=== PATIENT | female | born 1930 | race Caucasian/White ===

== ENCOUNTER 2017-01-08 09:27 | Day surgery (SDC) | payer MEDICARE, OTHER ==
[~2017-01-08] VITALS: Ht 152.4 cm; Wt 67.0 kg
[~2017-01-08 09:27] MED LIST: ACETAMINOPHEN 500 MG TAB (TYLENOL) PO PRN; ALBU0.63 IH; CHONDROITIN/HYALURONATE (DISCOVISC) 1 ML SYR IO ONE; FEXO30OR6 PO; GBPN300C PO; GUAI-150 PO; HYDR-3811 PO; LEVO25TA5 PO; MELA1TAB26 PO; MULT-301 PO; NITR1PAT56 TD; PHENYLEPHRINE/KETOROLAC 4 ML VIAL IO ONE; SODIUM CHLORIDE FLUSH 3 ML SYR IV PRN; TETRACAINE 0.5% OPHTHALMIC SOLUTION 4 ML BTL ONE; diphenhydrAMINE 50 MG/ML INJ (BENADRYL) IV PRN
--- OUTSIDE RECORDS SUMMARY | 2017-01-08 09:31 | XMS REPORT | Continuity Of Care Document ---
Author Author [facility] Organization 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 Role Phone UNASSIGNED, PHYSICIAN Unavailable Unavailable TERE LO, G AT YAPCEDRICK DO, A PP Results Lab Results Visit/Account #[id number] (November 06, 2016 9:50am - November 06, 2016 12: 40pm) Test Result Date/Time POC LACTIC ACID VENOUS POC LACTIC ACID VENOUS(0.90-1.70 MMOL/L) 0.63 MMOL/L November 06, 2016 9:57am CBC WITH REFLEXED MANUAL DIFF WHITE BLOOD COUNT(4.0-11.0 10E3/UL) 9.7 10E3/UL November 06, 2016 9:53am RED BLOOD COUNT(4.00-5.20 10E6/UL) 3.90 10E6/UL November 06, 2016 9:53am HEMOGLOBIN(12.0-16.0 G/DL) 11.9 G/DL November 06, 2016 9:53am HEMATOCRIT(36.0-46.0 %) 37.0 % November 06, 2016 9:53am MEAN CORPUSCULAR VOLUME(82.0-100.0 FL) 94.9 FL November 06, 2016 9:53am 91625-2: MEAN CORPUSCULAR HEMOGLOBIN(26.0-34.0 PG) 30.5 PG November 06, 2016 9:53am MEAN CORPUSCULAR HGB CONC(31.5-36.5 G/DL) 32.2 G/DL November 06, 2016 9:53am RED CELL DISTRIBUTION WIDTH(11.5-14.5 %) 13.6 % November 06, 2016 9:53am 777-3: PLATELET COUNT(150-450 10E3/UL) 180 10E3/UL November 06, 2016 9:53am MEAN PLATELET VOLUME(8.2-12.4 FL) 8.3 FL November 06, 2016 9:53am DIFF TYPE MANUAL November 06, 2016 9:53am NEUTROPHIL % (MANUAL)(40-70 %) 89 % November 06, 2016 9:53am BANDS%(0-3 %) 2 % November 06, 2016 9:53am LYMPHOCYTES % (MANUAL)(15-45 %) 3 % November 06, 2016 9:53am MONOCYTES % (MANUAL)(2-10 %) 4 % November 06, 2016 9:53am EOSINOPHILS % (MANUAL)(0-6 %) 1 % November 06, 2016 9:53am 08025-3: BASOPHILS % (MANUAL)(0-1 %) 1 % November 06, 2016 9:53am NUCLEATED RBCS (MANUAL)(0-0 %) 0 % November 06, 2016 9:53am 753-4: NEUTROPHILS # (MANUAL)(2.5-7.5 10E3/UL) 8.8 10E3/UL November 06, 2016 9:53am 732-8: LYMPHOCYTES # (MANUAL)(1.0-4.0 10E3/UL) 0.3 10E3/UL November 06, 2016 9:53am 743-5: MONOCYTES # (MANUAL)(0.2-0.8 10E3/UL) 0.4 10E3/UL November 06, 2016 9:53am 712-0: EOSINOPHILS # (MANUAL)(0.0-0.4 10E3/UL) 0.1 10E3/UL November 06, 2016 9:53am 705-4: BASOPHILS # (MANUAL)(0.0-0.2 10E3/UL) 0.1 10E3/UL November 06, 2016 9:53am 9317-9: PLATELET ESTIMATE ADEQUATE November 06, 2016 9:53am 42231-5: WBC MORPHOLOGY COMMENT NORMAL November 06, 2016 9:53am 6742-1: RBC MORPHOLOGY COMMENT NORMAL November 06, 2016 9:53am 38101-3: PLATELET MORPHOLOGY COMMENT NORMAL November 06, 2016 9:53am 47189-2: COMPLETE METABOLIC PROFILE GLUCOSE(70-110 MG/DL) 108 MG/DL November 06, 2016 9:53am BLOOD UREA NITROGEN(6-20 MG/DL) 14 MG/DL November 06, 2016 9:53am CREATININE(0.50-1.20 MG/DL) 0.61 MG/DL November 06, 2016 9:53am 41949-7: EST GLOMERULAR FILTRATION RATE(Greater than or equal to 60) Greater than or equal to 60 Result Comments: If the patient is of -[place] descent/extraction multiply the eGFR value by 1.212 to obtain the actual eGFR. >=60 mg/dL Normal 30-59 mg/dL Moderate Kidney Disease 15-29 mg/dL Severe Kidney Disease <15 mg/dL Kidney Failure November 06, 2016 9:53am BUN CREATININE RATIO(10.0-20.0 RATIO) 23.0 RATIO November 06, 2016 9:53am SODIUM(135-145 MMOL/L) 133 MMOL/L November 06, 2016 9:53am POTASSIUM(3.6-5.0 MMOL/L) 3.9 MMOL/L November 06, 2016 9:53am CHLORIDE(101-111 MMOL/L) 100 MMOL/L November 06, 2016 9:53am CO2(21-31 MMOL/L) 26 MMOL/L November 06, 2016 9:53am ANION GAP(8-18) 11 November 06, 2016 9:53am OSMO CALCULATED(270.0-290.0) 267.4 November 06, 2016 9:53am CALCIUM(8.5-10.5 MG/DL) 9.9 MG/DL November 06, 2016 9:53am BILIRUBIN,TOTAL(0.1-1.2 MG/DL) 0.6 MG/DL November 06, 2016 9:53am ALKALINE PHOSPHATASE(42-121 IU/L) 58 IU/L November 06, 2016 9:53am ASPARTATE AMINO TRANSFERASE(10-42 IU/L) 29 IU/L November 06, 2016 9:53am ALANINE AMINOTRANSFERASE(10-60 IU/L) 16 IU/L November 06, 2016 9:53am TOTAL PROTEIN(6.4-8.2 G/DL) 7.3 G/DL November 06, 2016 9:53am ALBUMIN(3.5-5.5 G/DL) 4.1 G/DL November 06, 2016 9:53am GLOBULIN(2.4-3.6) 3.2 November 06, 2016 9:53am ALBUMIN/GLOBULIN RATIO(0.9-1.8 RATIO) 1.3 RATIO November 06, 2016 9:53am Microbiology Results Visit/Account #[id number] (November 06, 2016 9:50am - November 06, 2016 12: 40pm) Procedure Result BLOOD CULTURE BLOOD CULTURE Result Instance On November 06, 2016 11:35am Source: BLOOD Result Comments: GRAM POSITIVE COCCI OBSERVED ON THE GRAM STAIN OF THE AEROBIC BOTTLE. RESULTS CALLED TO AND READ BACK BY KARON ON 11/07/16 AT 0126 BY [employer]. BARCODE #: [id number] Organism: [id number] (SNOMED_CT) STREPTOCOCCUS PYOGENES GRP A BLOOD CULTURE BOTTLE ISOLATED FROM AEROBIC BOTTLE ADDITIONAL INFORMATION SENSITIVITY ON [id number] Result Instance On November 06, 2016 11:35am Source: BLOOD Result Comments: GRAM POSITIVE COCCI OBSERVED ON THE GRAM STAINS OF BOTH THE AEROBIC AND ANAEROBIC BLOOD CULTURE BOTTLES. RESULTS CALLED TO AND READ BACK BY KARON ON 11/07/16 AT 0035 BY [employer]. BARCODE #: [id number] STREPTOCOCCUS PYOGENES detected by Verigene Nucleic Acid Test. [facility]igene results do not rule out the possiblility of infection with other organisms. Detection of antimicrobial resistance markers does not indicate resistance, as resistance may occur by other mechanisms. Results of nucleic acid testing are preliminary and will be verified by culture and suceptiblilty testing. The Verigene BC-GP assay tests for S. aureus, S. lugdunensis, S. agalactiae, S. pneumoniae, E. faecalis, S. pyogenes, S. anginosus group, E. facium, Staphylococcus, and Streptococcus. Resistance markers tested include: mecA, Natalia and vanB. Organism: [id number] (SNOMED_CT) STREPTOCOCCUS PYOGENES GRP A BLOOD CULTURE BOTTLE ISOLATED FROM BOTH BOTTLES Allergies and Adverse Reactions Allergies and Adverse Reactions Patient Unit Number: [id number] Agent Type Reaction Severity Status PENICILLINS Drug Allergy RASH Mild Active SHELLFISH Drug Allergy WARM ALL OVER AND LIGHTHEADED Mild Active CODEINE Drug Adverse Reaction GI UPSET Mild Active ERYTHROMYCIN BASE Drug Adverse Reaction NAUSEA Mild Active AZITHROMYCIN Drug Allergy Unknown Unknown Active Problem List Problem List Visit/Account #[id number] (November 06, 2016 9:50am - November 06, 2016 12: 40pm) Acute Problems: Code/Condition Comments Documented Start Date Documented Resolved Date Code (s) COPD exacerbation ICD10: J44.1 Obstructive chronic bronchitis with exacerbation ICD9: 491.21 Obstructive chronic bronchitis with exacerbation SNOMED: 898606160 Obstructive chronic bronchitis with exacerbation CAP (community acquired pneumonia) ICD10: J18.9 Community acquired pneumonia ICD9: 486 Community acquired pneumonia SNOMED: 945879218 Community acquired pneumonia Patient Unit Number: [id number] Chronic Problems: Code/Condition Comments Documented Start Date Documented Resolved Date Code (s) Bronchiectasis ICD10: J47.9 Bronchiectasis ICD9: 494.0 Bronchiectasis SNOMED: 13935738 Bronchiectasis Bronchiectasis ICD10: J47.9 Bronchiectasis ICD9: 494.0 Bronchiectasis SNOMED: 64681189 Bronchiectasis Plan of Care Plan Of Care Visit/Account #[id number] (November 06, 2016 9:50am - November 06, 2016 12: 40pm) Patient Instructions Take the Levaquin daily for 4 more days, next dose is tomorrow. Take the prednisone daily for 5 days. Use your albuterol 1 treatment every 4-6 hours for 2 days, then as needed. Return to the emergency department for any concerns, followup with your Dr. as needed. Prescriptions sent to [facility] pharmacy Vital Signs Vital Signs Visit/Account #[id number] (November 06, 2016 9:50am - November 06, 2016 12: 40pm) Sign First Result Last Result Code(s) Temperature in Fahrenheit Temperature (Fahrenheit): 99.8 [degF] On November 06, 2016 9:47am Temperature (Fahrenheit): 98.5 [degF] On November 06, 2016 12:35pm 8310-5 Body Temperature Weight in Kilograms Weight (Kilograms): 66.1 kg On November 06, 2016 9:47am 3141-9 Weight Measured 38884-2 Body weight measured in kilograms Functional Status Functional and Cognitive Status No Functional Status Data Medications Inpatient/Ordered Medications - Medications administered during hospital visit Visit/Account #[id number] (November 06, 2016 9:50am - November 06, 2016 12: 40pm) Medication Route Sig/Schedule Precondition/Indication Comments/ Instructions Codes VENTOLIN 0.5% NEB(ALBUTEROL SULF) 2.5 MG/0.5 ML INHALER Dose: 1 ML INHALED NOW Albuterol 1 MG/ML Inhalant Solution (RxNorm): 995251 VENTOLIN 0.5% NEB (ALBUTEROL SULF) NDC: 64271312598 ATROVENT 0.02% NEB(IPRATROPIUM BROMIDE) 0.5 MG/2.5 ML SOLUTION Dose: 2.5 ML INHALED NOW Ipratropium [place] 0.2 MG/ML Inhalant Solution (RxNorm): 025542 ATROVENT 0.02% NEB (IPRATROPIUM BROMIDE) NDC: 22479515103 SOLU-Medrol INJ(MethylPREDNISolone SOD SUCC) 125 MG/2 ML INJECTION Dose: 2 ML INTRAVEN NOW Methylprednisolone 125 MG Injection [Solu-Medrol] (RxNorm): 4978355 SOLU-Medrol INJ (MethylPREDNISolone SOD SUCC) NDC: 59941179404 IV Medication Carriers: NORMAL SALINE(SODIUM CHLORIDE) 1000 ML INJECTION Dose: 1000 ML INTRAVEN .Q1H (Rate: 1000 MLS/HR Duration: 1 HR) Carriers: 1000 ML Sodium Chloride 9 MG/ML Injection (RxNorm): 8870739 NORMAL SALINE (SODIUM CHLORIDE) NDC: 42236655448 LEVAQUIN(LevoFLOXacin) 750 MG TAB Dose: 750 MG ORAL ONE TIME ORDER Label Comments: Take 2 hrs before or after antacids, sucralfate, metal cations(iron), or multi-vitamins Levofloxacin 750 MG Oral Tablet (RxNorm): 173646 LEVAQUIN (LevoFLOXacin) NDC: 04013957417 History Of Encounters Encounters Visit/Account #[id number] (November 06, 2016 9:50am - November 06, 2016 12: 40pm) Account Status Physican Of Record Reason For Visit Visit Diagnosis Start Date/Time Stop Date/Time DANIELE CARRANZA DO CONFUSION R05: COUGH ICD10 Nov 06, 2016 9:50am Nov 06, 2016 12:40pm History of Procedures Procedure List No procedures recorded. Discharge Instructions Discharge Instructions Visit/Account #[id number] (November 06, 2016 9:50am - November 06, 2016 12: 40pm) DISCHARGE INSTRUCTIONS Physician Documentation Social History Social History No Social History Data. Immunizations Immunizations Patient Unit Number: [id number] Immunizations No immunizations recorded.
[2017-01-08 09:44] VITALS: BP 169/97
[2017-01-08] MEDS: LIDOCAINE 3.5% OPHTH GEL (AKTEN) 1 ML BTL OD SCH ×4 (09:49→10:20)
[2017-01-08] MEDS: CATARACT PRE-OP EYE DROPS 0.5ML SYRINGE OD SCH ×3 (10:00→10:20)
[2017-01-08] MEDS: HOME MEDICATION OD SCH ×3 (10:00→10:20)
[2017-01-08] MEDS ORDERED: FLAX100031 PO (10:17)
[2017-01-08] MEDS ORDERED: ASPI-586 PO (10:17)
[2017-01-08] MEDS ORDERED: L. A1CAP11 PO (10:17)
[2017-01-08] MEDS ORDERED: FLUT9.9S NS (10:17)
[2017-01-08] MEDS ORDERED: UBID1CAP51 PO (10:17)
[2017-01-08] MEDS ORDERED: MNTL10T PO (10:22)
[2017-01-08] MEDS ORDERED: MAGN400O7 PO (10:22)
[2017-01-08] MEDS ORDERED: GUAI120013 PO (10:22)
[2017-01-08] MEDS ORDERED: BUDE10.2 IH (10:30)
[2017-01-08] MEDS ORDERED: OMEP40CA36 PO (10:30)
[2017-01-08] MEDS ORDERED: DENO60DI SQ (10:30)
[2017-01-08] MEDS ORDERED: SERT50TA9 PO (10:30)
[2017-01-08] MEDS ORDERED: BENZ200C43 PO (10:30)
[2017-01-08] MEDS ORDERED: ALBU8.5H2 IH (10:30)
[2017-01-08] MEDS ORDERED: CHOL200018 PO (10:30)
[2017-01-08] MEDS ORDERED: CHONDROITIN/HYALURONATE (VISCOAT) 0.5 ML SYR IO ONE (10:52)
[2017-01-08] MEDS ORDERED: MIDAZOLAM 2 MG/2 ML (VERSED) VIAL ONE (10:56)
[2017-01-08 11:30] VITALS: BP 142/90
== END 2017-01-08 11:54 | disposition home or self-care (01) ==
LOC: ASC 09:27
PROVIDERS: ATTEND Ophthalmology
DX: H26.9 Unspecified cataract (principal); E03.9 Hypothyroidism, unspecified; M19.90 Unspecified osteoarthritis, unspecified site; J45.909 Unspecified asthma, uncomplicated; J44.9 Chronic obstructive pulmonary disease, unspecified; Z79.899 Other long term (current) drug therapy; Z95.0 Presence of cardiac pacemaker; Z86.73 Personal history of transient ischemic attack (TIA), and cerebral infarction without residual deficits
CPT/HCPCS: 66984; A9270; C9447; J2250; V2632